=== PATIENT | male | born 1995 | race Two or more races ===

== ENCOUNTER 2016-03-23 20:03 | Emergency (ER) | payer MEDICAID ==
[~2016-03-23] VITALS: Ht 162.6 cm; Wt 75.3 kg
[2016-03-24 07:25] VITALS: BP 123/77
== END 2016-03-24 08:46 | disposition home or self-care (01) ==
LOC: ER 20:08
DX: M70.42 Prepatellar bursitis, left knee (principal); W19.XXXA Unspecified fall, initial encounter; Y93.89 Activity, other specified; Y99.8 Other external cause status; Y92.89 Other specified places as the place of occurrence of the external cause
CPT/HCPCS: 73562

== ENCOUNTER 2016-07-30 01:46 | Emergency (ER) | payer MEDICAID ==
[~2016-07-30] VITALS: Ht 165.1 cm; Wt 76.7 kg
[2016-07-30 02:08] VITALS: BP 155/89
[2016-07-30] MEDS ORDERED: ALBUTEROL SULF 2.5 MG/0.5ML(0.5%) NEB SOLN NEB ONE (03:45)
[2016-07-30] MEDS ORDERED: IPRATROPIUM BROM 0.5 MG/2.5ML INH SOL NEB ONE (03:45)
== END 2016-07-30 04:30 | disposition home or self-care (01) ==
LOC: ER 01:46
DX: J40 Bronchitis, not specified as acute or chronic (principal)
CPT/HCPCS: 71020; 94640

== ENCOUNTER 2016-09-08 22:52 | Emergency (ER) | payer MEDICAID ==
[2016-09-08 23:58] VITALS: BP 118/100
== END 2016-09-09 01:18 | disposition home or self-care (01) ==
LOC: ER 23:00
DX: Z04.1 Encounter for examination and observation following transport accident (principal); R05 Cough; V49.59XA Passenger injured in collision with other motor vehicles in traffic accident, initial encounter; Y93.89 Activity, other specified; Y99.8 Other external cause status; Y92.410 Unspecified street and highway as the place of occurrence of the external cause
CPT/HCPCS: 71020; 72040

== ENCOUNTER 2016-11-09 11:07 | Inpatient (IN) | payer MEDICAID ==
[~2016-11-09] VITALS: Ht 175.3 cm; Wt 83.0 kg
[2016-11-09] MEDS ORDERED: SODIUM CHLORIDE 0.9% 1,000 ML IVB ONE (12:21)
[2016-11-09 12:56] LABS: Basophils # (auto) 0 uL; Basophils % (auto) 0.4 % (0.0-2.0); CONDITION Y; Eosinophils # (auto) 0.2 uL; Eosinophils % (auto) 1.8 % (0.0-7.0); Lymphocytes # (auto) 2.4 uL; Lymphocytes % (auto) 24.7 % (10.0-50.0); Mean Corpuscular Hemoglobin 29.4 pg (28.0-32.0); Mean Corpuscular Hgb Conc. 34.1 g/dL (32.0-36.0); Mean Corpuscular Volume 86.2 fL (80.0-100.0); Monocytes # (auto) 0.5 uL; Monocytes % (auto) 5.4 % (0.0-12.0); Neutrophils # (auto) 6.6 uL; Neutrophils % (auto) 67.7 % (37.0-80.0); Platelet Count (auto) 324 10^3/uL (140-450); Red Cell Distribution Width 13.1 % (11.6-16.0); White Blood Cell 9.7 10^3/uL (4.4-10.8)
[2016-11-09 13:07] LABS: Albumin 3.8 g/dL (3.4-5.0); Calcium 9.4 mg/dL (8.5-10.1); Potassium 4.4 mmol/L (3.5-5.1)
[2016-11-09 13:09] LABS: Magnesium 2.8 mg/dL (1.6-2.6)
[2016-11-09 13:10] LABS: Bilirubin, Total 0.4 mg/dL (0.2-1.0); Total Protein 7.2 g/dL (6.4-8.2)
[2016-11-09] MEDS ORDERED: HYDROcodone-ACET 5/325MG TAB PO PRN (14:45)
[2016-11-09] MEDS ORDERED: LORazepam 2MG/ML-1ML VIAL IV PRN (14:45)
[2016-11-09] MEDS ORDERED: LACTULOSE 20Gm/30ML SOLN PO PRN (14:45)
[2016-11-09] MEDS ORDERED: MORPHINE SULF INJ 2 MG/ML SYRINGE 1ML IV PRN ×2 (14:45)
[2016-11-09] MEDS ORDERED: LORazepam 0.5 MG TAB PO PRN (14:45)
[2016-11-09] MEDS ORDERED: NITROGLYCERIN 0.4 MG SL TAB SL PRN (14:45)
[2016-11-09] MEDS ORDERED: LEVETIRACETAM 500 MG TAB PO ONE (15:00)
[2016-11-09] MEDS: SODIUM CHLORIDE 0.9% 1,000 ML IV SCH ×2 (15:00→21:44)
[2016-11-09] MEDS ORDERED: ENOXAPARIN SOD 40 MG/0.4 ML SYRINGE SC ONE (15:00)
[2016-11-09 16:31] VITALS: BP 138/68
[2016-11-09 16:40] VITALS: BP 138/68
[2016-11-09 22:00] VITALS: BP 117/59
[2016-11-09] MEDS ORDERED: LEVETIRACETAM 500 MG TAB PO SCH (22:00)
[2016-11-09 22:44] LABS: Urine RBC None Seen /hpf (0 - 3)
[2016-11-09 22:46] LABS: Urine Bilirubin Negative (Negative); Urine Blood Negative /uL (Negative); Urine Color Yellow (Yellow); Urine Glucose Normal (Normal); Urine Ketone Negative (Negative); Urine Nitrite Negative (Negative); Urine Urobilinogen Normal (Negative); Urine pH 6.5 (5.0-8.0)
[2016-11-10] VITALS (7 sets, daily range): BP systolic 108–143; BP diastolic 58–76
[2016-11-10] MEDS: SODIUM CHLORIDE 0.9% 1,000 ML IV SCH ×4 (04:07→21:34)
[2016-11-10] MEDS ORDERED: ENOXAPARIN SOD 40 MG/0.4 ML SYRINGE SC SCH (10:00)
[2016-11-10] MEDS: ACETAMINOPHEN 500 MG TAB PO PRN (20:35)
[2016-11-10] MEDS: TEMAZEPAM 15 MG CAP PO PRN (21:20)
[2016-11-11 05:44] VITALS: BP 93/48
[2016-11-11] MEDS: SODIUM CHLORIDE 0.9% 1,000 ML IV SCH ×3 (06:35→21:43)
[2016-11-11 07:00] VITALS: BP 136/88
[2016-11-11] MEDS: IPRATROPIUM BROM 0.5 MG/2.5ML INH SOL NEB PRN ×2 (07:23→18:53)
[2016-11-11] MEDS: ALBUTEROL SULF 2.5 MG/0.5ML(0.5%) NEB SOLN NEB PRN ×2 (07:24→18:53)
[2016-11-11 09:02] VITALS: BP 113/74
[2016-11-11] MEDS: PROMETHAZINE HCL 25 MG/ML 1ML IV PRN (10:00)
[2016-11-11 15:46] VITALS: BP 116/75
[2016-11-11] MEDS: ACETAMINOPHEN 500 MG TAB PO PRN (20:20)
[2016-11-11] MEDS: TEMAZEPAM 15 MG CAP PO PRN (21:34)
[2016-11-11 21:49] VITALS: BP 110/68
[2016-11-12] MEDS: SODIUM CHLORIDE 0.9% 1,000 ML IV SCH ×4 (03:52→22:44)
[2016-11-12 05:00] VITALS: BP 102/54
[2016-11-12 06:35] LABS: Basophils # (auto) 0 uL; Basophils % (auto) 0.3 % (0.0-2.0); Eosinophils # (auto) 0.3 uL; Lymphocytes # (auto) 3.2 uL; Lymphocytes % (auto) 39.4 % (10.0-50.0); Mean Corpuscular Hemoglobin 29.3 pg (28.0-32.0); Mean Corpuscular Hgb Conc. 34.1 g/dL (32.0-36.0); Mean Corpuscular Volume 85.9 fL (80.0-100.0); Mean Platelet Volume 8.6 fL (7.4-10.4); Monocytes # (auto) 0.5 uL; Monocytes % (auto) 6.1 % (0.0-12.0); Neutrophils # (auto) 4.1 uL; Neutrophils % (auto) 50.2 % (37.0-80.0); Nucleated Red Blood Cells % 0.1 %; Platelet Count (auto) 278 10^3/uL (140-450); Red Cell Distribution Width 12.7 % (11.6-16.0); White Blood Cell 8.2 10^3/uL (4.4-10.8)
[2016-11-12 07:04] LABS: Albumin 3.3 g/dL (3.4-5.0); BUN/Creatinine Ratio 14.5; Bilirubin, Total 0.5 mg/dL (0.2-1.0); Calcium 8.7 mg/dL (8.5-10.1); Potassium 3.9 mmol/L (3.5-5.1); Total Protein 6.8 g/dL (6.4-8.2)
[2016-11-12 08:22] VITALS: BP 123/67
[2016-11-12] MEDS: ALBUTEROL SULF 2.5 MG/0.5ML(0.5%) NEB SOLN NEB PRN ×2 (09:26→13:45)
[2016-11-12] MEDS: IPRATROPIUM BROM 0.5 MG/2.5ML INH SOL NEB PRN ×2 (09:26→13:45)
[2016-11-12 12:18] VITALS: BP 126/76
[2016-11-12] MEDS ORDERED: ADENOSINE 71 MG in GIVE UN-DILUTED 0 ML IV ONE (13:15)
[2016-11-12] MEDS ORDERED: IPRATROPIUM BROM 0.5 MG/2.5ML INH SOL ONE (13:35)
[2016-11-12] MEDS ORDERED: ALBUTEROL SULF 2.5 MG/0.5ML(0.5%) NEB SOLN ONE (13:35)
[2016-11-12] MEDS: ACETAMINOPHEN 500 MG TAB PO PRN (15:59)
[2016-11-12 16:33] VITALS: BP 162/77
[2016-11-12] MEDS: PROMETHAZINE HCL 25 MG/ML 1ML IV PRN (20:57)
[2016-11-12] MEDS: TEMAZEPAM 15 MG CAP PO PRN (20:58)
[2016-11-12 21:30] VITALS: BP 116/63
[2016-11-13 02:49] VITALS: BP 116/63
[2016-11-13 05:00] VITALS: BP 105/52
[2016-11-13] MEDS: SODIUM CHLORIDE 0.9% 1,000 ML IV SCH ×2 (08:30→12:08)
[2016-11-13 10:07] VITALS: BP 128/70
[2016-11-13] MEDS: ACETAMINOPHEN 500 MG TAB PO PRN (11:00)
[2016-11-13 12:09] VITALS: BP 128/70
[2016-11-13 12:33] VITALS: BP 107/82
[2016-11-13 16:00] VITALS: BP 128/70
== END 2016-11-13 16:00 | disposition home or self-care (01) | DRG 204 ==
LOC: ER 11:07 → TELE-CENTR 11:08 → CENTRAL 15:55 → TELE-CENTR 23:33
PROVIDERS: ADMIT Internal Medicine; ATTEND Internal Medicine
DX: R55 Syncope and collapse (principal); I95.9 Hypotension, unspecified; G40.909 Epilepsy, unspecified, not intractable, without status epilepticus; F79 Unspecified intellectual disabilities; J45.909 Unspecified asthma, uncomplicated; G89.29 Other chronic pain; R32 Unspecified urinary incontinence; M54.9 Dorsalgia, unspecified; K59.00 Constipation, unspecified; F41.9 Anxiety disorder, unspecified; G47.00 Insomnia, unspecified; R62.59 Other lack of expected normal physiological development in childhood; Z83.3 Family history of diabetes mellitus; Z82.49 Family history of ischemic heart disease and other diseases of the circulatory system
CPT/HCPCS: 36415; 70450; 71010; 80053; 80307; 80320; 81001; 83735; 85025; 85379; 85652; 93005; 93017; 93306; 94640; 95819; 96372; 99291; J0153

== ENCOUNTER 2017-03-16 14:55 | Emergency (ER) | payer MEDICAID ==
[~2017-03-16] VITALS: Ht 177.8 cm; Wt 79.4 kg
[2017-03-16 15:01] VITALS: BP 122/63
== END 2017-03-16 21:10 | disposition left against medical advice (07) ==
LOC: ER 14:55
DX: R51 Headache (principal); R42 Dizziness and giddiness; Z53.21 Procedure and treatment not carried out due to patient leaving prior to being seen by health care provider
CPT/HCPCS: 82962; 93005

== ENCOUNTER 2017-06-02 17:25 | Emergency (ER) | payer MEDICAID ==
[~2017-06-02] VITALS: Ht 172.7 cm; Wt 72.6 kg
[2017-06-02 21:03] LABS: Basophils # (auto) 0 uL; Basophils % (auto) 0.4 % (0.0-2.0); Eosinophils # (auto) 0.1 uL; Eosinophils % (auto) 0.5 % (0.0-7.0); Hemoglobin 15.1 g/dL (13.5-17.5); Lymphocytes # (auto) 2.9 uL; Lymphocytes % (auto) 24.8 % (10.0-50.0); Mean Corpuscular Hemoglobin 29.3 pg (28.0-32.0); Mean Corpuscular Hgb Conc. 34.4 g/dL (32.0-36.0); Mean Corpuscular Volume 85.2 fL (80.0-100.0); Monocytes # (auto) 0.7 uL; Monocytes % (auto) 5.7 % (0.0-12.0); Neutrophils # (auto) 8.1 uL; Neutrophils % (auto) 68.6 % (37.0-80.0); Nucleated Red Blood Cells % 0.2 %; Platelet Count (auto) 305 10^3/uL (140-450); Red Blood Cells 5.16 10^6/uL (4.5-5.90); Red Cell Distribution Width 13.1 % (11.8-14.3); White Blood Cell 11.8 10^3/uL (4.4-10.8)
[2017-06-02 21:29] LABS: Albumin 3.9 g/dL (3.4-5.0); BUN/Creatinine Ratio 12.6; Bilirubin, Total 0.5 mg/dL (0.2-1.0); Calcium 8.5 mg/dL (8.5-10.1); Potassium 3.7 mmol/L (3.5-5.1); Total Protein 7.2 g/dL (6.4-8.2)
[2017-06-02 22:42] VITALS: BP 130/60
== END 2017-06-02 22:55 | disposition home or self-care (01) ==
LOC: EDBD 17:25 → ER 17:25
DX: R04.0 Epistaxis (principal); J45.909 Unspecified asthma, uncomplicated
CPT/HCPCS: 36415; 70450; 80053; 82962; 85025; 93005; 94761

== ENCOUNTER 2019-04-04 00:45 | Emergency (ER) | payer MEDICAID ==
[~2019-04-04] VITALS: Ht 167.6 cm; Wt 94.3 kg
[2019-04-04 01:00] VITALS: BP 132/74
[2019-04-04] MEDS ORDERED: ACETAMINOPHEN/CODEINE#3 (300/30mg) TAB PO ONE (03:30)
[2019-04-04] MEDS ORDERED: DexAMETHasone SOD PHOS 10MG/1ML VIAL INJ IM ONE (03:30)
== END 2019-04-04 03:50 | disposition home or self-care (01) ==
LOC: ER 00:48
DX: J06.9 Acute upper respiratory infection, unspecified (principal); J45.909 Unspecified asthma, uncomplicated; R51 Headache
CPT/HCPCS: 96372; 99283; J1100

== ENCOUNTER 2019-07-31 22:33 | Emergency (ER) | payer MEDICAID ==
[~2019-07-31] VITALS: Ht 172.7 cm; Wt 72.6 kg
[2019-08-01 00:33] VITALS: BP 119/55
[2019-08-01] MEDS ORDERED: cefTRIAXone 1GM/50ML D5W 50 ML IV ONE (01:30)
[2019-08-01] MEDS ORDERED: IPRATROPIUM BROM 0.5 MG/2.5ML INH SOL NEB ONE (01:30)
[2019-08-01] MEDS ORDERED: ALBUTEROL SULF 2.5 MG/0.5ML(0.5%) NEB SOLN NEB ONE (01:30)
[2019-08-01 01:34] LABS: Basophils # (auto) 0 10 ^3/uL (0-0.2); Basophils % (auto) 0.3 % (0.0-2.0); Eosinophils # (auto) 0.2 10 ^3/uL (0-0.8); Eosinophils % (auto) 1.8 % (0.0-7.0); Hemoglobin 15.6 g/dL (13.5-17.5); Lymphocytes # (auto) 2.7 10 ^3/uL (0.4-5.4); Lymphocytes % (auto) 30.7 % (10.0-50.0); Mean Corpuscular Hemoglobin 28.8 pg (28.0-32.0); Mean Corpuscular Hgb Conc. 33.9 g/dL (32.0-36.0); Mean Corpuscular Volume 84.9 fL (80.0-100.0); Monocytes # (auto) 0.5 10 ^3/uL (0-1.3); Neutrophils # (auto) 5.3 10 ^3/uL (1.6-8.6); Neutrophils % (auto) 61.2 % (37.0-80.0); Nucleated Red Blood Cells % 0.1 %; Platelet Count (auto) 291 10^3/uL (140-450); Red Blood Cells 5.42 10^6/uL (4.5-5.90); Red Cell Distribution Width 13.1 % (11.8-14.3); White Blood Cell 8.7 10^3/uL (4.4-10.8)
[2019-08-01 01:47] LABS: Albumin 3.6 g/dL (3.4-5.0); Anion Gap 4 (5-15); Calcium 8.5 mg/dL (8.5-10.1); Carbon Dioxide 27 mmol/L (21-32); Chloride 107 mmol/L (98-107); GFR African American 144 mL/min; GFR Non-African American 119 mL/min; Magnesium 2.1 mg/dL (1.6-2.6); Potassium 3.8 mmol/L (3.5-5.1); Sodium 138 mmol/L (136-145)
[2019-08-01 01:52] LABS: Alanine Aminotransferase 19 U/L (16-61); Alkaline Phosphatase 92 U/L (45-117); Aspartate Aminotransferase 17 U/L (15-37); Bilirubin, Total 0.5 mg/dL (0.2-1.0); Blood Urea Nitrogen 6 mg/dL (7-18); Glucose 96 mg/dL (74-106)
[2019-08-01 02:00] LABS: BUN/Creatinine Ratio 7.1
== END 2019-08-01 02:15 | disposition home or self-care (01) ==
LOC: ER 22:33 → EDBD 22:33 → EDUNIT# 22:33 → ER 08-01 02:15
DX: J01.00 Acute maxillary sinusitis, unspecified (principal); J18.9 Pneumonia, unspecified organism; J45.901 Unspecified asthma with (acute) exacerbation
CPT/HCPCS: 36415; 70450; 80053; 83735; 83880; 84484; 85025; 93005; 94640; 96365; 99285; J0696; J7644; 71045

== ENCOUNTER 2019-08-22 12:36 | Inpatient (IN) | payer MEDICAID ==
[~2019-08-22] VITALS: Ht 152.4 cm; Wt 76.8 kg
[2019-08-22] MEDS ORDERED: SODIUM CHLORIDE 0.9% 1,000 ML IVB ONE (13:07)
[2019-08-22 14:00] LABS: Basophils # (auto) 0 10 ^3/uL (0-0.2); Basophils % (auto) 0.4 % (0.0-2.0); Eosinophils # (auto) 0.1 10 ^3/uL (0-0.8); Hematocrit 47.6 % (41.0-53.0); Hemoglobin 16.1 g/dL (13.5-17.5); Lymphocytes # (auto) 2.4 10 ^3/uL (0.4-5.4); Lymphocytes % (auto) 28.8 % (10.0-50.0); Mean Corpuscular Hemoglobin 28.9 pg (28.0-32.0); Mean Corpuscular Hgb Conc. 33.9 g/dL (32.0-36.0); Mean Corpuscular Volume 85.2 fL (80.0-100.0); Monocytes # (auto) 0.5 10 ^3/uL (0-1.3); Monocytes % (auto) 5.9 % (0.0-12.0); Neutrophils # (auto) 5.3 10 ^3/uL (1.6-8.6); Neutrophils % (auto) 63.9 % (37.0-80.0); Nucleated Red Blood Cells % 0.2 %; Platelet Count (auto) 275 10^3/uL (140-450); Red Blood Cells 5.58 10^6/uL (4.5-5.90); Red Cell Distribution Width 12.9 % (11.8-14.3); White Blood Cell 8.3 10^3/uL (4.4-10.8)
[2019-08-22 14:17] LABS: Albumin 3.7 g/dL (3.4-5.0); Calcium 8.7 mg/dL (8.5-10.1); INR 1.13 (0.9-1.15); Partial Thromboplastin Time 30.4 sec (23.64-32.05); Potassium 3.8 mmol/L (3.5-5.1)
[2019-08-22 14:22] LABS: Bilirubin, Total 0.5 mg/dL (0.2-1.0); Total Protein 7.2 g/dL (6.4-8.2)
[2019-08-22 16:59] LABS: Urine WBC None Seen /hpf (0 - 3)
[2019-08-22 17:14] LABS: Urine Bacteria NONE SEEN /hpf (None Seen); Urine Blood Negative /uL (Negative); Urine Mucus FEW (None Seen); Urine Specific Gravity 1.006 (1.001-1.035)
[2019-08-22] MEDS ORDERED: HYDROcodone-ACET 5/325MG TAB PO PRN (19:15)
[2019-08-22] MEDS ORDERED: ACETAMINOPHEN 500 MG TAB PO PRN (19:15)
[2019-08-22] MEDS ORDERED: ONDANSETRON HCL 4 MG/2 ML VIAL IV PRN (19:15)
[2019-08-22] MEDS ORDERED: NITROGLYCERIN 0.4 MG SL TAB SL PRN (19:15)
[2019-08-22] MEDS: SODIUM CHLORIDE 0.9% 1,000 ML IV SCH (19:15)
[2019-08-22 22:40] VITALS: BP 117/60
--- NOTE | 2019-08-22 22:40 | NUR ---
Telemetry admit from RIRI DUNCAN admitted to Telemetry unit. Patient oriented to ELIZABETH GILLETTE RN primary RN, unit, room, bed, and unit policies regarding patient care and visiting hours. Patient now on continuous telemetry monitoring, tele box #[id number] and telemetry reading on arrival to unit is SR 70BPM. Patient placed on bedside oxygen 2L NC, weighed by bedscale and encouraged to call if they need something. Fall and safety precautions in place. Call light within reach and able to use. All questions and concerns addressed, patient verbalized understanding. Will continue to monitor q1h and prn.
--- NOTE | 2019-08-22 22:50 | NUR ---
CHEST PAIN PATIENT PAIN ASSESSMENT PERFORMED. PATIENT STATES HE HAS PAIN IN CHEST. PATIENT SHOW PAIN IN MID-STERNAL AREA, DENIES RADIATION AND ANY OTHER SYMPTOMS. PATIENT STATES IT IS SEVERE PAIN AND UNABLE TO USE ADULT PAIN SCALE. PATIENT SHOWN FACES SCALE AND REFLECTS 10/10 PAIN. PATIENT ASSESSED AND RESPONSE TO QUESTIONS REVEAL ONSET IS ACUTE ON CHRONIC, SUSTAINED TO INTERMITTENT, THROBBING AND PRESSURE-LIKE. PATIENT AND VISITOR (HELEN Khoury AFSHIN) AT BEDSIDE EDUCATED ON ACS PROTOCOL, THEY VERBALIZED UNDERSTANDING AND IN AGREEMENT. WILL OBTAIN EKG. VITALS SIGNS: TEMP 98.6; HEART RATE 70 BPM; BLOOD PRESSURE 117/60 IN SEMI-FOWLERS POSITION ON RIGHT BRACHIAL; O2 SAT 97%; PAIN 10/10, RESPIRATIONS 20 BBP EVEN AND UNLABORED. WILL NOTIFY MD. WILL CONTINUE TO MONITOR.
--- NOTE | 2019-08-22 22:56 | NUR ---
EKG OBTAINED EKG OBTAINED, READS HEART RATE OF 59BPM WITH ST ELEVATION. ON-CALL HOSP PAGED. AWAITING CALL BACK.
[2019-08-22] MEDS: MORPHINE SULF INJ 2 MG/ML SYRINGE 1ML IV PRN (23:02)
--- NOTE | 2019-08-22 23:06 | NUR ---
SHOWN EKG MD GONG SHOWN EKG, READ AND NOT SIGNED (SEE IN CHART). NOTIFIED THAT ACS PROTOCOL INITIATED (SEE EMAR), PATIENT ON 2 L NC, AND ELECTRONIC OPERATOR AND TIMOTHY TRUONG NOTIFIED. RECEIVED ORDERS FOR TROP STAT AND TO PAGED FABRICATION OPERATOR (CARDIO CONSULT ALREADY IN PLACE). WILL PAGE CARDIO.
--- NOTE | 2019-08-22 23:10 | NUR ---
CARDIO / MD PETERS RECEIVED CALL FROM MD PETERS. NOTIFIED MD OF PATIENT STATUS OF CHEST PAIN WITH RECENT AND INITIAL EKG. MD REQUESTED ECG TO REVIEW. WILL SEND. WILL CONTINUE TO MONITOR.
[2019-08-22] MEDS ORDERED: HEPARIN DRIP/D5W 100UNITS/ML 250 ML IV SCH (23:55)
[2019-08-23] MEDS ORDERED: PANTOPRAZOLE 40 MG TAB PO ONE
[2019-08-23] MEDS ORDERED: CLOPIDOGREL 300 MG TAB PO ONE
[2019-08-23] MEDS ORDERED: ASPirin 325 MG TAB PO ONE
[2019-08-23] MEDS ORDERED: HEPARIN SODIUM (PORCINE) 5000 UNITS/ML 1ML VIAL IV ONE
[2019-08-23] MEDS ORDERED: ATORVASTATIN 20 MG TAB PO ONE
--- NOTE | 2019-08-23 | NUR ---
LORRAINE NEW ORDERS RECEIVED CALL FROM MD PETERS. NEW ORDERS RECEIVED (READ BACK AND VERIFIED). WILL CARRY OUT. WILL CONTINUE TO MONITOR PATIENT.
--- NOTE | 2019-08-23 00:15 | NUR ---
BIPIN PER MD PETERS, PATIENT STATUS BIPIN. HOWEVER PER TIMOTHY TRUONG, NO BED AVAILABLE. WILL MAINTAIN PATIENT ON MST FLOOR BIPIN STATUS PATIENT UNTIL FURTHER NOTICE. WILL CONTINUE TO MONITOR.
[2019-08-23] MEDS ORDERED: HEPARIN DRIP/D5W 100UNITS/ML 250 ML IV ONE (00:55)
[2019-08-23] MEDS: NITROGLYCERIN 2% OINT 1GM PKG TD SCH ×2 (01:14→06:06)
[2019-08-23 01:30] LABS: Basophils # (auto) 0 10 ^3/uL (0-0.2); Basophils % (auto) 0.4 % (0.0-2.0); Eosinophils # (auto) 0.1 10 ^3/uL (0-0.8); Eosinophils % (auto) 0.9 % (0.0-7.0); Hemoglobin 15.4 g/dL (13.5-17.5); Lymphocytes # (auto) 3.5 10 ^3/uL (0.4-5.4); Lymphocytes % (auto) 38.6 % (10.0-50.0); Mean Corpuscular Hgb Conc. 34.3 g/dL (32.0-36.0); Mean Corpuscular Volume 84.4 fL (80.0-100.0); Monocytes # (auto) 0.6 10 ^3/uL (0-1.3); Monocytes % (auto) 6.3 % (0.0-12.0); Neutrophils # (auto) 4.9 10 ^3/uL (1.6-8.6); Neutrophils % (auto) 53.8 % (37.0-80.0); Nucleated Red Blood Cells % 0.2 %; Platelet Count (auto) 296 10^3/uL (140-450); Red Blood Cells 5.32 10^6/uL (4.5-5.90); Red Cell Distribution Width 13.2 % (11.8-14.3); White Blood Cell 9.1 10^3/uL (4.4-10.8)
[2019-08-23 01:36] LABS: INR 1.15 (0.9-1.15); Partial Thromboplastin Time 32.5 sec (23.64-32.05)
[2019-08-23] MEDS ORDERED: ALBU2TAB4 NEB (04:44)
[2019-08-23 04:53] VITALS: BP 119/65
[2019-08-23] MEDS: SODIUM CHLORIDE 0.9% 1,000 ML IV SCH ×2 (05:15→17:38)
--- NOTE | 2019-08-23 05:28 | NUR ---
EKG OBTAINED EKG OBTAINED AND PLACED IN CHART. READS PREVIOUS. MD AWARE. WILL CONTINUE TO MONITOR.
--- NOTE | 2019-08-23 06:00 | NUR ---
ORTHO VS PATIENTS ORTHOSTATIC VS ALL TAKEN ON RIGHT BRACHIAL: SUPINE: 116/68 MMHG; HEART RATE 86 BPM SITTIN/66 MMHG; HEART RATE 73 BPM STANDIN/90 MMHG; HEART RATE 94 BPM
[2019-08-23] MEDS: MORPHINE SULF INJ 2 MG/ML SYRINGE 1ML IV PRN (06:15)
--- NOTE | 2019-08-23 06:51 | NUR ---
MD PETERS COMMUNICATION MD PETERS INFORMED OF PATIENT PERSISTENT CHEST PAIN AND STATUS. RECEIVED NOTIFICATION TO MAINTAIN PATIENT NPO AND PRINT CONSENT FOR POSSIBLE FOLDER STITCHER OPERATOR.
[2019-08-23 06:54] LABS: Basophils # (auto) 0 10 ^3/uL (0-0.2); Basophils % (auto) 0.3 % (0.0-2.0); Eosinophils # (auto) 0.1 10 ^3/uL (0-0.8); Eosinophils % (auto) 0.9 % (0.0-7.0); Hemoglobin 15.6 g/dL (13.5-17.5); Lymphocytes % (auto) 45.2 % (10.0-50.0); Mean Corpuscular Hemoglobin 28.7 pg (28.0-32.0); Mean Corpuscular Hgb Conc. 33.9 g/dL (32.0-36.0); Mean Corpuscular Volume 84.6 fL (80.0-100.0); Monocytes # (auto) 0.5 10 ^3/uL (0-1.3); Monocytes % (auto) 5.8 % (0.0-12.0); Neutrophils # (auto) 4.2 10 ^3/uL (1.6-8.6); Neutrophils % (auto) 47.8 % (37.0-80.0); Nucleated Red Blood Cells % 0.2 %; Platelet Count (auto) 274 10^3/uL (140-450); Red Blood Cells 5.44 10^6/uL (4.5-5.90); Red Cell Distribution Width 12.9 % (11.8-14.3); White Blood Cell 8.8 10^3/uL (4.4-10.8)
--- NOTE | 2019-08-23 06:54 | NUR ---
IV insertion IV access obtained, via clean sterile technique by inserting 22 gauge catheter at LEFT FORAERM after 1 attempt. IV secured properly. No trauma to site. Patient tolerated well.
--- NOTE | 2019-08-23 07:00 | NUR ---
SURVEY QUESTIONNAIRE DESIGNER RECEIVED NEW ORDERS READ BACK AND VERIFIED (SEE NEW ORDERS). PATIENT TO RECEIVE SURVEY QUESTIONNAIRE DESIGNER TODAY PER MD PETERS. WILL CONTINUE TO MONITOR.
--- NOTE | 2019-08-23 07:00 | NUR ---
Opening Shift Note: Assumed care of patient, awake and alert. No S/S of distress/SOB or pain. Bed in lowest locked position, side rails up x 2, call light within reach. Bed alarm activated for patient safety. Patient instructed on POC and to call for assist PRN, will continue to monitor for changes Q1hr and PRN.
[2019-08-23 07:13] LABS: Chloride 108 mmol/L (98-107); Potassium 3.6 mmol/L (3.5-5.1); Sodium 141 mmol/L (136-145)
[2019-08-23 07:22] LABS: Alanine Aminotransferase 19 U/L (16-61); Albumin 3.5 g/dL (3.4-5.0); Anion Gap 8 (5-15); Aspartate Aminotransferase 18 U/L (15-37); BUN/Creatinine Ratio 12.2; Blood Urea Nitrogen 12 mg/dL (7-18); Calcium 8.3 mg/dL (8.5-10.1); Carbon Dioxide 25 mmol/L (21-32); GFR African American 121 mL/min; GFR Non-African American 100 mL/min; Glucose 83 mg/dL (74-106)
--- NOTE | 2019-08-23 07:25 | NUR ---
Per house sup and charge nurse approval, patients mother up to floor to sign consents.
[2019-08-23 07:27] LABS: Alkaline Phosphatase 84 U/L (45-117); Bilirubin, Total 0.8 mg/dL (0.2-1.0); Total Protein 6.8 g/dL (6.4-8.2)
[2019-08-23 07:53] LABS: INR 1.19 (0.9-1.15); Partial Thromboplastin Time 52.1 sec (23.64-32.05)
[2019-08-23] MEDS ORDERED: VERAPAMIL 2.5MG/ML INJ 2ML VIAL IV ONE (07:53)
[2019-08-23] MEDS ORDERED: ANGIOMAX 250 MG VIAL IV ONE (07:53)
[2019-08-23] MEDS ORDERED: fentaNYL CITRATE 100 MCG/2 ML VL ONE (07:53)
[2019-08-23] MEDS ORDERED: SODIUM CHL 0.9% 0 ML ONE (07:54)
[2019-08-23] MEDS ORDERED: HEPARIN IN NS 1000Units/500mL 1,500 ML ONE (07:54)
[2019-08-23] MEDS ORDERED: MIDAZOLAM HCL 1MG/1ML-2 ML VIAL ONE (07:54)
[2019-08-23] MEDS ORDERED: LIDOCAINE 2%HCL (LOCAL ANESTH.) INJ 20ML MDV ONE (07:54)
[2019-08-23] MEDS ORDERED: NITROGLYCERIN 50MG/250ML 250 ML IV ONE (07:57)
--- NOTE | 2019-08-23 08:08 | NUR ---
DR PETERS AT BEDSIDE. DISCUSSED PROCEDURE WITH PATIENT AND PATIENTS MOTHER.
--- NOTE | 2019-08-23 08:20 | NUR ---
HEALTH BENEFITS SPECIALIST NURSES AT BEDSIDE TO TRANSPORT PATIENT TO HEALTH BENEFITS SPECIALIST.
[2019-08-23 09:00] VITALS: BP 113/57
[2019-08-23] MEDS: ATENOLOL 50 MG TAB PO SCH (10:00)
[2019-08-23] MEDS ORDERED: CLOPIDOGREL BISULFATE 75 MG TAB PO SCH (10:00)
[2019-08-23] MEDS: ASPirin 81 mg TAB PO SCH (10:00)
[2019-08-23] MEDS: cefTRIAXone 1GM/50ML D5W 50 ML IV SCH (10:11)
[2019-08-23] MEDS: FAMOTIDINE 20 MG TAB PO SCH (10:11)
[2019-08-23] MEDS: PANTOPRAZOLE 40 MG TAB PO SCH (10:11)
--- NOTE | 2019-08-23 11:40 | NUR ---
cardiopulmonary technician at bedside.
--- NOTE | 2019-08-23 12:03 | NUR ---
Vasc band deflated, 2 mL at a time. Removed, no bleeding at site. Will continue to monitor.
[2019-08-23 12:35] VITALS: BP 115/72
[2019-08-23 13:11] LABS: INR 1.13 (0.9-1.15); Partial Thromboplastin Time 31.8 sec (23.64-32.05)
[2019-08-23 16:49] VITALS: BP 129/75
[2019-08-23] MEDS ORDERED: LORazepam 2MG/ML-1ML VIAL IV PRN (17:00)
--- NOTE | 2019-08-23 18:49 | NUR ---
CLOSING NOTE: Patient resting in bed. No S/S of pain or distress at this time. Care endorsed to NOC RN.
[2019-08-23 20:06] LABS: INR 1.11 (0.9-1.15); Partial Thromboplastin Time 32.6 sec (23.64-32.05)
--- NOTE | 2019-08-23 20:30 | NUR ---
TRANSFER PER MD PETERS AND MD VALIENTE, PATIENT TO BE TRANSFERRED FROM BIPIN STATUS TO TELEMETRY STATUS. SEE NEW ORDERS. WILL CONTINUE TO MONITOR PATIENT.
[2019-08-23] MEDS: MECLIZINE HCL 25 MG TAB PO SCH (21:10)
[2019-08-23 22:00] VITALS: BP 125/72
[2019-08-23] MEDS ORDERED: ATORVASTATIN 20 MG TAB PO SCH (22:00)
[2019-08-24] VITALS (8 sets, daily range): BP systolic 110–136; BP diastolic 55–73
[2019-08-24] MEDS: SODIUM CHLORIDE 0.9% 1,000 ML IV SCH ×2 (01:15→04:39)
[2019-08-24] MEDS: MORPHINE SULF INJ 2 MG/ML SYRINGE 1ML IV PRN ×3 (04:44→15:58)
--- NOTE | 2019-08-24 07:10 | NUR ---
Opening Shift Note: Assumed care of patient. Patient asleep at this time. No S/S of distress/SOB or pain. Bed in lowest locked position, side rails up x 2, call light within reach. Bed alarm activated for patient safety. Patient will be instructed on POC and to call for assist PRN, will continue to monitor for changes Q1hr and PRN.
[2019-08-24] MEDS: MECLIZINE HCL 25 MG TAB PO SCH (09:16)
[2019-08-24] MEDS: cefTRIAXone 1GM/50ML D5W 50 ML IV SCH (09:16)
[2019-08-24] MEDS: FAMOTIDINE 20 MG TAB PO SCH (09:16)
[2019-08-24] MEDS: ASPirin 81 mg TAB PO SCH (09:16)
[2019-08-24] MEDS: PANTOPRAZOLE 40 MG TAB PO SCH (09:17)
[2019-08-24] MEDS: ATENOLOL 50 MG TAB PO SCH (09:50)
--- NOTE | 2019-08-24 11:40 | NUR ---
ORTHOSTATIC BLOOD PRESSURES LAYING- 123/69 SITTING- 123/71 STANDING- 122/69
[2019-08-24] MEDS ORDERED: MECL25TA18 PO (16:28)
--- NOTE | 2019-08-24 16:43 | NUR ---
Assessment Patient is a 24 year old male who is alert and oriented. Prior to admission patient lived with family and functioned with assistance. Patient informed me he does not have any medical equipment now. Per patient he will return to his prior living arrangements and [facility] transportation will need to be arranged. Patient informed me he has family support. Advised patient there is a social service consult for possible home oxygen and help at home. Informed patient doctor will determined if he needs home O2. Informed patient he has a right to participate in all discharge planning. Patient verbalized understanding and agreed to discharge plan. GEOVANY Zaman informed me patient does not qualify for home O2 and transportation needs to be arranged. Faxed transportation form request to [facility] requesting for a 19:30 tile picker time via [employer]. [employer] [phone] will transport patient between 19:30-20:30. Addendum: 08/24/19 at 1650 by ROBINA DICKENS Amended: Links added.
--- NOTE | 2019-08-24 18:52 | NUR ---
PATIENT RESTING IN BED. CARE ENDORSED TO NOC RN.
--- NOTE | 2019-08-24 19:55 | NUR ---
IV REMOVAL AND TELE REMOVED IV TO LEFT AC AND LEFT FOREARM REMOVED WITH CATHETERS FULL INTACT AND NO TRAUMA TO SITE. PRESSURE DRESSINGS APPLIED AND INSTRUCTED PATIENT TO MAINTAIN PRESSURE TO PREVENT BLESSING AT SITES. TELE MONITOR CLEANED AND RETURNED TO TELE MONITOR TECHNICIANS.
--- NOTE | 2019-08-24 19:59 | NUR ---
DISCHARGE PATIENT DISCHARGE INSTRUCTIONS GIVEN, PATIENT VERBALIZED UNDERSTANDING. ALL PAPERWORK GIVEN TO PATIENT AND INSTRUCTED TO FOLLOW UP WITH PCP WITH FOLLOW UP APPOINTMENT PROVIDED. ALL BELONGINGS WITH PATIENT. PATIENT TRANSPORTED HOME WITH [facility] [employer] [facility] AT THIS TIME.
== END 2019-08-24 20:09 | disposition home or self-care (01) | DRG 111 ==
LOC: ER 12:36 → EDUNIT# 12:36 → EDBD 12:36 → TELE 12:37 → TELE-WESTW 22:40
PROVIDERS: ADMIT Nurse Practitioner Acute Care; ATTEND Hospitalist
PROC: 4A023N7 Measurement of Cardiac Sampling and Pressure, Left Heart, Percutaneous Approach (ICD-10-PCS; principal; 2019-08-23)
PROC: B211YZZ Fluoroscopy of Multiple Coronary Arteries using Other Contrast (ICD-10-PCS; 2019-08-23)
PROC: B215YZZ Fluoroscopy of Left Heart using Other Contrast (ICD-10-PCS; 2019-08-23)
DX: R42 Dizziness and giddiness (principal); Q24.5 Malformation of coronary vessels; I25.10 Atherosclerotic heart disease of native coronary artery without angina pectoris; F79 Unspecified intellectual disabilities; J45.909 Unspecified asthma, uncomplicated; Z20.828 Contact with and (suspected) exposure to other viral communicable diseases; Z82.49 Family history of ischemic heart disease and other diseases of the circulatory system; Z83.3 Family history of diabetes mellitus; Z87.01 Personal history of pneumonia (recurrent)
CPT/HCPCS: 36415; 70450; 70551; 71045; 80053; 81001; 83735; 84484; 85025; 85610; 85730; 87081; 87804; 87880; 93306; 93458; 95819; 99152; G0378; J0696; J2250

== ENCOUNTER 2020-04-11 00:31 | Emergency (ER) | payer MEDICAID ==
[~2020-04-11 00:31] MED LIST: ALBU2TAB4 NEB; MECL25TA18 PO
== END 2020-04-11 02:58 | disposition left against medical advice (07) ==
LOC: ER 00:31
DX: M79.675 Pain in left toe(s) (principal); Z53.21 Procedure and treatment not carried out due to patient leaving prior to being seen by health care provider

== ENCOUNTER → 2021-10-21 | Emergency (ER) | payer MEDICAID ==
[~2021-10-21] VITALS: Ht 170.2 cm; Wt 80.0 kg
[~2021-10-21] MED LIST changes: +ALBUTEROL SULF 2.5 MG/0.5ML(0.5%) NEB SOLN NEB ONE; +IPRATROPIUM BROM 0.5 MG/2.5ML INH SOL NEB ONE
[2021-10-21 22:10] VITALS: BP 138/81
== END | disposition left against medical advice (07) ==
LOC: ER 21:48
DX: R05.9 Cough, unspecified (principal); R06.02 Shortness of breath; J45.909 Unspecified asthma, uncomplicated; Z53.21 Procedure and treatment not carried out due to patient leaving prior to being seen by health care provider
CPT/HCPCS: 71045; 94640; J7644